=== PATIENT | male | born 1960 | race Caucasian/White ===

== ENCOUNTER → 2021-03-19 | Outpatient (CLI) | payer MEDICARE ==
[~2021-03-19] MED LIST: ABILIFY15 MG PO; ALPRAZOLAM0.5 MG PO; DIABETA 5 MG TAB5 MG PO; FLONASE ALLER15.8 ML; KENALOG CREAM 015 GM EXT; LANSOPRAZOLE30 MG PO; LEVEMIR100 UNIT/1 SQ; LIPITOR TAB 2020 MG PO; LISINOPRIL30 MG PO; METFORMIN HCL1000 MG PO; METHADONE10 MG/1 ML INJ; METOPROLOL SUCC25 MG PO; NEURONTIN 300300 MG PO; NOVOLIN R100 UNIT/1 INJ; PLAVIX 75 MG TA75 MG PO; VENLAFAXINE HCL75 MG PO
== END ==
LOC: KOH-I 10:22
DX: R51.9 Headache, unspecified (principal)
CPT/HCPCS: 70450